=== PATIENT | female | born 1980 | race Caucasian/White ===

== ENCOUNTER 2017-01-13 03:45 | Observation (INO) ==
[2017-01-13] MEDS ORDERED: Aspirin 81 MG TAB.CHEW PO ONE (04:06)
--- NOTE | 2017-01-13 04:19 | Emergency Department Note ---
Disposition Clinical Impression: Chest pain Qualifiers: Chest pain type: unspecified Qualified Code(s): R07.9 - Chest pain, unspecified Disposition: Admitted As Inpatient Condition: Good Chest Pain HPI - General Chief Complaint: ED Chest Pain Stated Complaint: chest pain Time Seen by Provider: 01/13/17 03:56 Source: patient Limitations: no limitations Vital Signs Reviewed: Yes Nursing Notes Reviewed: Yes - History of Present Illness HPI Narrative: Patient here for evaluation of chest pain that started at 1:30. Patient describes substernal chest pressure with radiation to left arm. Worse with exertion. Patient smokes approximately 1 pack a day. Intermittent alcohol use. Occasional marijuana use. No previous cardiac history. No previous cardiac investigation. Patient had significant family history including father with heart disease at the age of 28 as well as mother with heart disease in her mid 30s. Patient states she has not been to doctor within the last 15 years. Patient is not on any current medications. No allergies. Severity scale (1-10): 6 - Related Data Home Medications Medication Instructions Recorded Confirmed No Known Home Drugs 01/13/17 01/13/17 Allergies Allergy/AdvReac Type Severity Reaction Status Date / Time No Known Allergies Allergy Verified 01/13/17 03:45 Review of Systems: CONSTITUTIONAL: No weight loss, fever, chills, weakness or fatigue. HEENT: Eyes: No visual changes. Ears, Nose, Throat: No hearing loss, difficulty talking or unable to swallow. SKIN: No rash or itching. CARDIOVASCULAR: Chest pain RESPIRATORY: No shortness of breath, cough or sputum. GASTROINTESTINAL: No anorexia, nausea, vomiting or diarrhea. No abdominal pain or blood. GENITOURINARY: No burning on urination or hematuria. NEUROLOGICAL: No headache, dizziness, syncope, paralysis, ataxia, numbness or tingling in the extremities. No change in bowel or bladder control. MUSCULOSKELETAL: No muscle pain, back pain, joint pain or stiffness. Chest Pain PMH - Past Medical History Medical history: Reports: no medical history Psychiatric history: Reports: no psych history - Social History Smoking Status: Current every day smoker Alcohol use: Reports: none Drug use: Reports: marijuana Physical Exam General appearance: NAD, conversant Eyes: anicteric sclerae, moist conjunctivae; PERRL HENT: Atraumatic; oropharynx clear with moist mucous membranes and no mucosal ulcerations Neck: Normal inspection; Trachea midline; FROM, supple Lungs: CTA, with normal respiratory effort and no intercostal retractions CV: RRR, no MRGs Abdomen: Soft, non-tender; no rebound or gaurding Extremities: No peripheral edema or extremity lymphadenopathy Skin: Normal temperature; no rash, ulcers or lesions Psych: Appropriate mood and affect Neuro: alert and oriented to person, place and time - General Limitations: no limitations General appearance: alert, in no apparent distress Course - Reevaluation(s) Reevaluation #1: Chest pain significantly improved since she has been resting in hospital bed. No other significant change or intervention other than aspirin was given. Discussed overall disposition including possible repeat four-hour troponin with patient but due to her lack of follow-up and strong significant past history she will be admitted to the hospital service. - Consultations Consultation #1: Discussed with Dr. Maxwell. Patient accepted for admission. Vital Signs Temperature 98.0 F 01/13/17 03:47 Pulse Rate 89 01/13/17 03:47 Respiratory Rate 16 01/13/17 03:47 Blood Pressure 129/85 01/13/17 03:47 O2 Sat by Pulse Oximetry 100 01/13/17 03:47 Temperature 97.7 F 01/13/17 19:29 Pulse Rate 56 01/13/17 19:29 Respiratory Rate 14 01/13/17 19:29 Blood Pressure 93/58 01/13/17 19:29 O2 Sat by Pulse Oximetry 97 01/13/17 19:29 Oxygen Delivery Oxygen Delivery Room Air Chest Pain - Medical Records Medical records reviewed: Yes I reviewed the patient's medical records. - Lab Data Lab results reviewed: Yes I reviewed the patient's lab results. Result diagrams: 01/13/17 04:18 01/13/17 04:18 Lab Results 01/13/17 01/13/17 01/13/17 Range/Units 04:18 04:18 04:18 WBC 10.1 (4.3-11.1) K/mcL RBC 4.43 (3.82-4.97) M/mcL Hgb 14.0 (11.5-15.4) g/dL Hct 41.2 (35.3-44.9) % MCV 93.0 (83.0-100.0) fL MCH 31.6 (28.0-33.3) pg MCHC 34.0 (31.6-35.5) g/dL RDW 13.1 (11.5-14.5) % Plt Count 227 (140-400) K/mcL MPV 10.0 (9.4-12.4) fL Immature Gran % 0.3 (0-4) % Seg Neutrophils % 78.7 % Lymphocytes % 12.7 % Monocytes % 7.0 % Eosinophils % 0.9 % Basophils % 0.4 % Neutrophils # 8.0 (1.6-8.9) K/mcL Lymphocytes # 1.3 (0.6-4.6) K/mcL Monocytes # 0.7 (0.0-1.3) K/mcL Eosinophils # 0.1 (0.0-0.6) K/mcL Basophils # 0.0 (0.0-0.2) K/mcL PT (9.4-12.1) Seconds INR APTT (26.0-36.0) Seconds Sodium 138 (136-145) mEq/L Potassium 3.8 (3.5-4.5) mEq/L Chloride 106 (98-109) mEq/L Carbon Dioxide 23 (19-29) mEq/L BUN 7 (7-20) mg/dL Creatinine 0.75 (0.57-1.11) mg/dL Est GFR ( Amer) > 60 (> 60) Est GFR (Non-Af Amer) > 60 (> 60) BUN/Creatinine Ratio 9 (6-26) Glucose 115 H (70-99) mg/dL Calculated Osmolality 285 (280-300) Calcium 8.8 (8.6-10.8) mg/dL Troponin I 0.00 (0-0.03) ng/mL 01/13/17 Range/Units 04:18 WBC (4.3-11.1) K/mcL RBC (3.82-4.97) M/mcL Hgb (11.5-15.4) g/dL Hct (35.3-44.9) % MCV (83.0-100.0) fL MCH (28.0-33.3) pg MCHC (31.6-35.5) g/dL RDW (11.5-14.5) % Plt Count (140-400) K/mcL MPV (9.4-12.4) fL Immature Gran % (0-4) % Seg Neutrophils % % Lymphocytes % % Monocytes % % Eosinophils % % Basophils % % Neutrophils # (1.6-8.9) K/mcL Lymphocytes # (0.6-4.6) K/mcL Monocytes # (0.0-1.3) K/mcL Eosinophils # (0.0-0.6) K/mcL Basophils # (0.0-0.2) K/mcL PT 11.7 (9.4-12.1) Seconds INR 1.1 APTT 34.0 (26.0-36.0) Seconds Sodium (136-145) mEq/L Potassium (3.5-4.5) mEq/L Chloride (98-109) mEq/L Carbon Dioxide (19-29) mEq/L BUN (7-20) mg/dL Creatinine (0.57-1.11) mg/dL Est GFR ( Amer) (> 60) Est GFR (Non-Af Amer) (> 60) BUN/Creatinine Ratio (6-26) Glucose (70-99) mg/dL Calculated Osmolality (280-300) Calcium (8.6-10.8) mg/dL Troponin I (0-0.03) ng/mL - Radiology Data Radiology results reviewed: Yes I reviewed the patient's radiology results. - EKG Data EKG attestation: Yes I reviewed and interpreted this EKG. EKG results narrative: EKG shows sinus rhythm with ventricular rate of 69 bpm. WI 130. QRS 88. QTC 374. Heart Score - Score History: Highly Suspicious EKG: Normal Age: Less than 45 Risk Factors: Equal/Greater than 3 risk factor or history of atherosclerotic disease Troponin: Less than normal limit HEART Score Total: 4 Attestation Statement - Attestation Attestation: I, Alexandr Campos MD, personally evaluated this patient and discussed their management with the resident physician. I reviewed the resident's note and agree with the documented findings, medical decision making, and plan of care. 36-year-old female presents to the emergency department with a complaint of some squeezing pressure-like mid upper substernal chest pain which started about 2 hours prior to arrival. The pain radiates to the left shoulder. The pain is worse with exertion and improved with rest. No nausea or vomiting. Mild shortness of breath. No prior history of heart problems or hypertension however patient does not go to the doctor. She does have a strong family history. She states that her mother at 38 from heart disease and her father has had 27 heart attacks. She is a smoker. On examination patient is a well-developed well-nourished female in no acute distress. She is alert and oriented 3. There is no cyanosis or diaphoresis. Chest is nontender to palpation. Breath sounds are clear and equal bilaterally. Heart regular rate and rhythm. Abdomen soft and nontender with normal bowel sounds. No pedal edema. Labs reviewed and unremarkable. Chest x-ray negative. EKG shows a normal sinus rhythm with no acute ischemic changes or ectopy. The hospitalist, Dr. Maxwell, was consulted and accepted admission of the patient.
[2017-01-13 04:27] LABS: Basophils % 0.4 %; Eosinophils # 0.1 K/mcL (0.0-0.6); Eosinophils % 0.9 %; Hematocrit 41.2 % (35.3-44.9); Immature Granulocytes % 0.3 % (0-4); Lymphocytes # 1.3 K/mcL (0.6-4.6); Lymphocytes % 12.7 %; Mean Corpuscular Hemoglobin 31.6 pg (28.0-33.3); Monocytes # 0.7 K/mcL (0.0-1.3); Platelet Count 227 K/mcL (140-400); Red Blood Count 4.43 M/mcL (3.82-4.97); Red Cell Distribution Width 13.1 % (11.5-14.5); Segmented Neutrophils % 78.7 %
[2017-01-13 04:33] LABS: INR 1.1; Prothrombin Time 11.7 Seconds (9.4-12.1)
[2017-01-13 04:41] LABS: BUN/Creatinine Ratio 9 (6-26); Blood Urea Nitrogen 7 mg/dL (7-20); Calcium 8.8 mg/dL (8.6-10.8); Carbon Dioxide 23 mEq/L (19-29); Chloride 106 mEq/L (98-109); Glucose 115 mg/dL (70-99); Osmolality,Calculated 285 (280-300); Potassium 3.8 mEq/L (3.5-4.5); Sodium 138 mEq/L (136-145); eGFR For African Americans > 60 (> 60); eGFR For Non-African Americans > 60 (> 60)
[2017-01-13] MEDS ORDERED: 0.9 % Sodium Chloride 1,000 ML IVC ONE (05:28)
--- NOTE | 2017-01-13 05:58 | Internal Med History&Physical ---
Date of Encounter: 01/13/17 Time of Encounter: 05:45 Assessment and Plan (1) Chest pain Current visit: Yes Status: Acute Acute chest pain which is substernal radiating to left arm - Rule out ACS EKG - normal sinus rhythm, troponin negative - trend troponin Continue ASA and statin Risk factors for coronary artery disease - strong family history of MIs and chronic smoker/tobacco abuse Chest x-ray - no acute process Repeat EKG Stress test pending Consult cardiology if troponin is elevated Qualifiers: Chest pain type: unspecified Qualified Code(s): R07.9 - Chest pain, unspecified (2) Tobacco abuse Current visit: Yes Status: Chronic Chronic tobacco abuse, smokes about half pack cigarettes a day and has been smoking for the past 15 years Counseled about cessation, nicotine patch (3) Asthma Current visit: Yes Status: Acute Chronic, stable, not in exacerbation Qualifiers: Asthma severity: mild intermittent Asthma complication type: uncomplicated Qualified Code(s): J45.20 - Mild intermittent asthma, uncomplicated (4) DVT prophylaxis Current visit: Yes Status: Acute Continue heparin subcutaneous Internal Medicine - H&P: HPI Admitted From: Emergency Dept History of present illness: Ms. Fonseca is a 36 year old female with past medical history of asthma. She presents to the ED with complaints of chest pain that started at around 1 AM this morning. Patient states she woke up with chest pain. Describes it as a pressure and squeezing type of pain which is substernal and radiating to the left arm. Pain is intermittent and rates it about 6 out of 10 in intensity. No aggravating or alleviating factors. No other associated symptoms. Patient denies shortness of breath denies palpitations denies headache denies vomiting or abdominal pain or cough. Patient does complain of generalized weakness and fatigue. On examination patient is awake and alert not in any distress. She looks much older than her stated age. Patient states she smokes about half pack of cigarettes a day and has been smoking for almost 15 years. Also admits to occasionally smoking marijuana. She does have a strong family history of CAD , where both her parents have had MIs at a very young age. Patient decided to come into the ER because of chest pain thinking that she may have a heart attack. Patient does not follow up with any physician. Patient does not take any medications at home. EKG shows normal sinus rhythm. Initial troponin is negative. Patient is being admitted for chest pain to rule out ACS. We will trend her troponin and repeat EKG. Patient has been explained about her condition and plan of care in detail. She understood and agreed. No unanswered questions. No family members at bedside at the time of admission. High risk due to chest pain with multiple risk factors. CODE STATUS full code. Past Med Surg Social Fam HX - Past Medical History Medical history: asthma (Not on any medication) Psychiatric history: no psych history - Past Surgical History Surgical History: , other (Tubal ligation) - Social History Smoking Status: Current every day smoker Smokeless Tobacco Status: No Alcohol use: none Drug use: marijuana - Family History Mother Hx Family Cardiac Disorders: Yes ([place]) Father Hx Family Cardiac Disorders: Yes ([place]) Internal Medicine - H&P: Meds Allergies No Known Allergies Allergy (Verified 01/13/17 03:45) All Systems PM: A 10-system review of systems was performed and is negative for pertinent findings except as documented above in the HPI. - Constitutional Constitutional: fatigue, weakness - EENT Eyes: no blurry vision, no loss of vision - Cardiovascular Cardiovascular ROS IM: chest pain, no diaphoresis, no dyspnea, no dyspnea on exertion, no lightheadedness, no orthopnea, no paroxysmal nocturnal dyspnea, no syncope - Respiratory Respiratory: no cough, no dyspnea, no hemoptysis, no dyspnea on exertion, no wheezing, no chest congestion - Gastrointestinal Gastrointestinal: no abdominal pain, no cramping, no diarrhea, no nausea, no vomiting - Musculoskeletal Musculoskeletal ROS IM: no arthralgias - Neurological Neurological ROS: no abnormal gait, no abnormal speech, no dizziness, no focal weakness, no loss of vision - Psychiatric Psychiatric: no anxiety - Constitutional Vitals: Temp Pulse Resp BP Pulse Ox 98.0 F 68 18 100/64 98 01/13/17 03:47 01/13/17 05:43 01/13/17 05:43 01/13/17 05:43 01/13/17 05:43 General appearance: Present: A&O X 3, pleasant, no acute distress, underweight, answers questions appropriately Exam: Patient looks older than her stated age - Head Head exam: Present: atraumatic - Eye Eye exam: Present: EOMI - ENT ENT exam: Present: mucous membranes moist - Neck Neck exam general surgery: Present: supple - Respiratory Respiratory exam: Present: CTAB. Absent: rales, rhonchi, wheezes, tachypnea - Cardiovascular Cardiovascular exam: Present: RRR, +S1, +S2 - GI/Abdominal GI/Abdominal exam: Present: soft. Absent: distended, guarding, tenderness - Extremities Exam Extremities exam: Present: radial pulses palpable and symetrical. Absent: cyanotic, pedal edema, tenderness - Neurological Exam Neurological exam: Present: alert, oriented X3, no focal deficits Internal Med - H&P Results - Labs CBC & Chem 7: 01/13/17 04:18 01/13/17 04:18
[2017-01-13] MEDS ORDERED: Ondansetron 4 MG/2 ML VIAL IVP PRN (06:04)
[2017-01-13] MEDS ORDERED: *HR* Morphine 2 MG/ML SYRINGE IVP PRN (06:04)
[2017-01-13] MEDS ORDERED: Naloxone 0.4 MG/ML INJ IVP PRN (06:04)
[2017-01-13] MEDS ORDERED: Nitroglycerin 0.4 MG TAB.SUBL SL PRN (06:15)
--- NOTE | 2017-01-13 09:28 | Event Note ---
<Teofilo Dick G - Last Filed: 01/13/17 09:27> Date of Encounter: 01/13/17 Time of Encounter: 09:27 Patient was seen and examined at bedside. Patient was admitted last night with chest pain. She describes this as a pressure in the center of her chest associated with shortness of breath. Patient reports minimal chest pain at this time. Patient has a significant family history with both her mother and her father having early coronary artery disease. Patient is also a smoker. Vital signs are stable, physical exam is otherwise unremarkable. EKG reviewed and there are no EKG changes. Given the patient's significant risk factors plan is to undergo cardiac stress testing tomorrow as the patient smoked overnight. We will use nitroglycerin if chest pain returns. <Steven Vick P - Last Filed: 01/13/17 15:26> Date of Encounter: 01/13/17 I examined this patient and my medical decision-making was reviewed with the GROUP UNDERWRITER/PA/Advanced Practice Nurse/Resident Physician. I agree with the documented findings, disposition and treatment plan as described except to the extent set forth below.
[2017-01-13] MEDS: Famotidine 20 MG TABLET PO SCH ×2 (13:12→21:15)
[2017-01-13] MEDS: Aspirin 81 MG TAB.CHEW PO SCH (13:12)
--- NOTE | 2017-01-13 14:48 | Electrocardiograph Report ---
[address] [address] Test Date: 2017-01-13 Pat Name: Myesha Fonseca Department: 105 Room: 3B Gender: F [employer]ing House Worker: EKP : 1980 Requested By: Jaden Salamanca Order Number: [id number] Reading MD: Faustina Fernandez Measurements Intervals Combs Rate: 69 P: 76 MT: 130 QRS: 77 QRSD: 88 T: 54 QT: 354 QTc: 374 Interpretive Statements SINUS RHYTHM Electronically Signed On 01-13-2017 14:46:21 EDT by Faustina Fernandez
[2017-01-13 16:01] LABS: Bilirubin,Urine Negative (Negative); Blood,Urine Negative (Negative); Clarity,Urine Cloudy (Clear); Color,Urine Yellow (Yellow); Glucose,Urine (UA) Normal (Normal); Ketones,Urine Trace mg/dL (Negative); Leukocyte Esterase,Urine Small (Negative); Nitrite,Urine Negative (Negative); PH,Urine 7.5 pH Units (5.0-8.0); Protein,Urine Negative (Neg-Trace); Specific Gravity,Urine 1.016 (1.010-1.025); Urobilinogen,Urine Normal (Normal)
[2017-01-13 16:03] LABS: Bacteria,Urine Few per hpf (None-Few); Hyaline Casts,Urine None Seen per lpf (None-Few); RBC,Urine 0-3 per hpf (0-3); Squamous Epithelial Cell,Urine Many per lpf (None-Few)
[2017-01-13] MEDS ORDERED: Nicotine 21 MG PATCH.TD24 TD SCH (19:00)
[2017-01-13] MEDS: Acetaminophen 325 MG TABLET PO PRN (21:51)
[2017-01-14 03:49] LABS: Chol/HDL Ratio 5.4 (0-4.9)
[2017-01-14] MEDS ORDERED: Regadenoson 0.4 MG/5 ML SYRINGE IVP ONE (06:36)
[2017-01-14] MEDS ORDERED: *HR* Enoxaparin 40 MG/0.4 ML SYRINGE SQ SCH (07:00)
[2017-01-14 11:22] VITALS: BP 112/62
--- NOTE | 2017-01-14 11:52 | Nuclear Medicine Stress Report ---
Regadenoson Nuclear 2 day Name: Myesha Fonseca Date of Study: 01/13/2017 Date: 1980 Ht: 66.0 in Medical Record#: [id number] Age: 36 Wt: 124.0 lb Gender: Female Order #: [id number] Location: [facility] Room: [facility] Supervising Provider: Rodger Doyle CNP Reading Physician: Brooks Rees DO, FACC, FASNC Ordering Physician: Radha Albrecht CNP Primary Care Physician: None Stress Technologist: Suma Rivera, OPTICAL FABRICATOR, CCT, CPFT Boiler Fitter: Megan Vallejo Indications: Chest Pain Impression: Pharmacologic stress ECG is negative for ischemia at level of heart rate achieved. Study quality was fair. Increased GI uptake obscures portions of the inferior and apex segments. Gated EF > 70%. Perfusion imaging was negative for ischemia or infarct. Clinical correlation suggested. History: Hypercholesteremia History of Smoking Stress Test Summary: Stress Test Type: Pharmacologic Regadenoson 0.4mg/5ml given IV Baseline Information: Initial Heart Rate: 59 Blood Pressure: 96/66 Stress Information: Stress Time: 4 min sec Test Terminated Due to (primary): As per protocol Maximum Blood Pressure: 118/70 Maximum Heart Rate: 114 Percent Maximum Heart Rate Achieved: 62 Double Product: [id number] METS Reached: 1 Symptoms: Shortness of breath Nuclear Summary: SPECT myocardial perfusion imaging using Tc99m Sestamibi given intravenously was performed at rest and following cardiac stress testing. The resting images were obtained following initial dose of 10.4 mCi. Following stress an additional dose of 32.8 mCi was given at peak exercise or 30 seconds post regadenoson infusion. Medication Given: Time Medication Dose Units Route Findings: Stress Note * Resting ECG demonstrated normal sinus rhythm. * No baseline arrhythmias were noted. * Pharmacologic stress ECG is negative for ischemia at level of heart rate achieved. * No arrhythmias were noted during stress. * Patient had no chest pain during stress. Hemodynamic responses * Normal hemodynamic responses to pharmacologic stress. Study Quality * Study quality was fair. Increased GI uptake obscures portions of the inferior and apex segments. Gated EF > 70% * Gated EF > 70%. Left Ventricle * The left ventricle is not dilated. * LVEDV = 77 mL. NORMALS * Normal segmental perfusion in stress. * Normal Segmental Perfusion in rest. TID * No evidence of transient ischemic dilatation. TID ratio * TID ratio = 1.03. Lung Uptake * There is no evidence of increase lung uptake. Updated by Brooks Rees DO, FACMonica, SHEN, FASALY on 01/14/2017 11:46:27 AM electronically signed on 01/14/2017 11:46:53 AM with status of Final
[2017-01-14] MEDS: Famotidine 20 MG TABLET PO SCH (12:06)
[2017-01-14] MEDS: Aspirin 81 MG TAB.CHEW PO SCH (12:06)
[2017-01-14] MEDS: Acetaminophen 325 MG TABLET PO PRN (12:10)
--- NOTE | 2017-01-14 12:52 | Discharge Summary ---
<Teofilo Dick - Last Filed: 01/14/17 12:49> Date of Encounter: 01/14/17 Time of Encounter: 12:49 - Discharge Diagnosis (1) Chest pain Priority: Primary Status: Resolved Qualifiers: Chest pain type: unspecified Qualified Code(s): R07.9 - Chest pain, unspecified (2) Tobacco abuse Priority: Secondary Status: Chronic (3) DVT prophylaxis Priority: Secondary Status: Inactive - Discharge Medications Home Medications: No Known Home Drugs 01/13/17 [History] Allergies/Adverse Reactions: Allergies No Known Allergies Allergy (Verified 01/13/17 03:45) Procedures/tests Complete & Pending: Procedures Performed prior 72 hours Category Date Time Status NM kaylie perf SPECT multi [NM] Routine Exams 01/13/17 06:08 Taken ECG 12 lead ECG [ECG] Routine Y 01/13/17 07:00 Ordered SP pharm nuclear stress Routine Y 01/14/17 07:00 Completed Date of admission: 01/13/17 05:44 Primary care physician: PCP NO Discharging clinician: Teofilo Dick Anticipated date of discharge: 01/14/17 - Patient Status Disposition: Home, Self-Care Condition: Good Functional capacity at discharge: independent ambulation Overall status at discharge: patient is back to baseline - Discharge Instructions Instructions: Chest Pain (DC), Asthma (DC), How to Stop Smoking (DC), Cigarette Smoking and Your Health (GEN) Follow Up With: NO,PCP [Primary Care Provider] - (Pt given information to establish primary care. Pt to follow up. ) Additional Instructions: Please establish with a primary care physician. We will strongly encourage you to discontinue smoking. Please return for any new or worsening symptoms. - Diet and Activity Activity: increase activity as tolerated Diet: regular diet Interval History: Patient seen and examined. Patient is chest pain-free at this time. Patient has no complaints. Hospital course: Ms. Fonseca is a 36 year old female with no significant medical history presents with chest pain. Patient reports substernal chest pressure was intermittent prior to arrival. Patient has a significant early family history of cardiac disease and is also a smoker and therefore the patient was admitted to rule out coronary disease. Trend of the troponins was negative, cardiac stress test was performed and negative for ischemia or infarct. Patient will be discharged home in stable condition. - Time Spent with Patient Total time spent providing and/or coordinating discharge services: - Constitutional Vitals: Temp Pulse Resp BP Pulse Ox 97.7 F 53 17 112/62 99 01/14/17 11:22 01/14/17 11:22 01/14/17 11:22 01/14/17 11:22 01/14/17 11:22 General appearance: Present: A&O X 3, pleasant, no acute distress, underweight, answers questions appropriately - Respiratory Respiratory exam: Present: CTAB. Absent: rales, rhonchi, wheezes - Cardiovascular Cardiovascular exam: Present: RRR. Absent: gallop, rubs, systolic murmur - GI/Abdominal GI/Abdominal exam: Present: normal bowel sounds, soft. Absent: distended, tenderness - Extremities Exam Extremities exam: Present: warm. Absent: pedal edema, tenderness - Neurological Exam Neurological exam: Present: alert, CN II-XII intact, oriented X3, no focal deficits <Nava,Steven P - Last Filed: 01/14/17 17:40> Date of Encounter: 01/14/17 Procedures/tests Complete & Pending: Procedures Performed prior 72 hours Category Date Time Status NM kaylie perf SPECT multi [NM] Routine Exams 01/13/17 06:08 Taken ECG 12 lead ECG [ECG] Routine Y 01/13/17 07:00 Ordered SP pharm nuclear stress Routine Y 01/14/17 07:00 Completed Date of admission: 01/13/17 05:44 Primary care physician: PCP NO Hospital course: Ms. Fonseca is a 36 year old female - Time Spent with Patient Total time spent providing and/or coordinating discharge services: - Constitutional Vitals: Temp Pulse Resp BP Pulse Ox 97.7 F 53 17 112/62 99 01/14/17 11:22 01/14/17 11:22 01/14/17 11:22 01/14/17 11:22 01/14/17 11:22 - Attending Attestation I examined this patient and my medical decision-making was reviewed with the INSURANCE PROCESSING CLERK/PA/Advanced Practice Nurse/Resident Physician. I agree with the documented findings, disposition and treatment plan as described except to the extent set forth below.
== END 2017-01-14 13:41 | disposition home or self-care (01) ==
LOC: 3BNU 03:45 → EMEROO 03:45 → 3BNU 05:59
PROVIDERS: ADMIT Family Medicine; ATTEND Registered Nurse